=== PATIENT | female | born 1955 | race Caucasian/White ===

== ENCOUNTER 2018-03-21 07:56 | Day surgery (SDC) | payer OTHER ==
[2018-03-21] MEDS: CEFAZOLIN 2 GM/50 ML (PMX) 50 ML IVPB (08:00)
[2018-03-21] MEDS ORDERED: PROPOFOL 20 ML (10:30)
[2018-03-21] MEDS ORDERED: CEFAZOLIN 1 GM INJ (10:30)
[2018-03-21] MEDS ORDERED: MIDAZOLAM 1 MG/ML 2 ML INJ (10:31)
[2018-03-21] MEDS ORDERED: FENTAnyl 50 MCG/ML VIAL (10:31)
[2018-03-21] MEDS ORDERED: HYDROmorphONE 1 MG/5 ML IV SYRINGE IV ×2 (11:00)
[2018-03-21] MEDS ORDERED: MEPERIDINE 25 MG INJ IV (11:00)
[2018-03-21] MEDS ORDERED: FENTAnyl 50 MCG/ML VIAL IV ×3 (11:00)
[2018-03-21] MEDS ORDERED: DIPHENHYDRAMINE 50 MG INJ IV (11:00)
[2018-03-21] MEDS ORDERED: EPHEDrine SULFATE 50 MG/5 ML SYG IV (11:00)
[2018-03-21] MEDS ORDERED: OXYCODONE/ACETAMINOPHEN (5/325) TAB PO (11:00)
[2018-03-21] MEDS ORDERED: METOCLOPRAMIDE 10 MG INJ IV (11:00)
[2018-03-21] MEDS ORDERED: hydrALAzine 20 MG INJ IV (11:00)
[2018-03-21] MEDS ORDERED: LABETALOL HCL 20MG INJ IV (11:00)
[2018-03-21] MEDS ORDERED: DEXAMETHASONE 4 MG/ML 1 ML INJ (11:08)
[2018-03-21] MEDS ORDERED: METOCLOPRAMIDE 10 MG INJ (11:08)
[2018-03-21] MEDS ORDERED: ONDANSETRON 4 MG INJ (11:08)
[2018-03-21] MEDS ORDERED: KETOROLAC 30 MG INJ (11:09)
[2018-03-21] MEDS: BUPIVACAINE 0.25% (MPF) 30 ML INJ (11:16)
[2018-03-21] MEDS: ONDANSETRON 4 MG INJ IV (12:04)
[2018-03-21] MEDS: HYDROmorphONE 1 MG/5 ML IV SYRINGE IV (12:04)
[2018-03-21] MEDS: HYDROCODONE/APAP (5/325) TAB PO (12:15)
[2018-03-21] MEDS: SOD CHLORIDE 0.9% 1,000 ML IV (12:17)
== END 2018-03-21 13:28 | disposition home or self-care (01) ==
LOC: SDS 07:56
DX: L90.5 Scar conditions and fibrosis of skin (principal); E11.9 Type 2 diabetes mellitus without complications; E78.5 Hyperlipidemia, unspecified
CPT/HCPCS: 14001; 82962; 88307